=== PATIENT | male | born 1965 | race Caucasian/White ===

== ENCOUNTER 2019-02-22 22:54 | Inpatient (IN) | payer OTHER ==
[~2019-02-22] VITALS: Ht 170.2 cm; Wt 64.4 kg
[2019-02-22 22:54] VITALS: BP 116/78
--- NOTE | 2019-02-22 22:54 | NUR ---
PATIENT BIB ALS TO ER BED 8.
--- NOTE | 2019-02-22 22:54 | NUR ---
53 Y/O MALE BIB EMS FROM HOME AFTER X1 MIN SIEZURE. PT HAS HX OF SIEZUES. FAMILY REPORTS HE TAKES HIS MEDS. PT WAS PLACED ON 02 NC 4LPM FOR OXYGEN DROPPING TO 85% @ RA. UPON ED ARRIVAL. PT IS ALERT TO NAME, PLACE, AND EVENT. 100% OSAT WITH NC AT 4LPM. SEIZURE PRECAUTIONS IMPLEMENTED. VSS. ER MD AWARE. CONTINUE TO MONITOR.
--- NOTE | 2019-02-22 22:54 | NUR ---
PT [facility]. TAKEN TO BED 8
[2019-02-22] MEDS ORDERED: DIVA500T1 PO (23:02)
[2019-02-22] MEDS ORDERED: GABA100C PO (23:02)
[2019-02-22] MEDS ORDERED: ESCI20TA PO (23:02)
[2019-02-22] MEDS ORDERED: RISP0.5T3 PO (23:02)
[2019-02-22] MEDS ORDERED: levETIRAcetam 1,000 MG in NACL 0.9% 100 ML IV ONE (23:25)
--- NOTE | 2019-02-22 23:28 | NUR ---
PT HAD 10 SECOND SEIZURE. NO N/V. POSTICTAL AFTER SEIZURE. SUCTION NOT NEEDED BUT AT BEDSIDE. PT ON O2 AT 4LPM VIA NC. NO RESPIRATORY DISTRESS NOTED. ER MD AWARE. CONTINUE TO MONITOR.
[2019-02-22] MEDS ORDERED: levETIRAcetam 100 MG/ML VIAL IV ONE (23:40)
[2019-02-22 23:47] LABS: BASOPHILS % (AUTO) 0.5 % (0.0-2.0); EOSINOPHILS # (AUTO) 0.2 K/uL (0-0.4); EOSINOPHILS % (AUTO) 2.2 % (0.0-4.0); HEMATOCRIT 43.2 % (36-52); HEMOGLOBIN 14.3 g/dL (12.0-18.0); LYMPHOCYTES % (AUTO) 21.3 % (20.5-51.1); MEAN CORPUSCULAR HEMOGLOBIN 30 pg (27-31); MEAN CORPUSCULAR HGB CONC 33 g/dL (33-37); MEAN CORPUSCULAR VOLUME 90.7 fL (80-94); MONOCYTES # (AUTO) 0.8 K/uL (0.8-1.0); MONOCYTES % (AUTO) 8.1 % (1.7-9.3); NEUTROPHILS # (AUTO) 6.5 K/uL (1.8-7.7); NEUTROPHILS % (AUTO) 67.9 % (42.2-75.2); PLATELET COUNT (AUTO) 215 K/uL (140-450); RED BLOOD CELL COUNT(AUTO) 4.76 MIL/uL (4.20-6.10); RED CELL DISTRIBUTION WIDTH 19.4 % (11.6-13.7); WHITE BLOOD COUNT (AUTO) 9.5 K/uL (4.8-10.8)
--- NOTE | 2019-02-23 | NUR ---
PT IN BED RESTING. PT ALERT TO NAME, PLACE. SPEECH SLOW BUT FOLLOWS COMMANDS. BILAT EYES PERRLA. HAND ACCOUNTS PAYABLE ACCOUNTANT WEAK. VSS. CONTINUE TO MONITOR.
[2019-02-23 00:06] LABS: ANION GAP 16.1 (8-16); CARBON DIOXIDE 23.7 mmol/L (21-32); CREATININE 1.1 mg/dL (0.7-1.3); POTASSIUM 3.8 mmol/L (3.5-5.1)
[2019-02-23 00:11] LABS: ALBUMIN 3.1 g/dL (3.4-5.0); TOTAL BILIRUBIN 0.3 mg/dL (0.0-1.0)
[2019-02-23 00:31] LABS: APPEARANCE,URINE CLEAR (CLEAR); BILIRUBIN,URINE NEGATIVE (NEGATIVE); BLOOD, URINE NEGATIVE (NEGATIVE); COLOR,URINE YELLOW (YELLOW); LEUKOCYTE ESTERASE ,URINE NEGATIVE (NEGATIVE); NITRITE, URINE NEGATIVE (NEGATIVE); UGLUCOSE NEGATIVE (NEGATIVE)
--- NOTE | 2019-02-23 01:00 | NUR ---
PT IN BED RESTING WITH EYES OPEN. PT ALERT TO NAME, PLACE, TIME, AND EVENT. HAND GOLD LEAF LABORER BILAT STRONG. SPEECH STRONG AND CLEAR. PT STATES 0/10 PAIN AND NO RESPIRATORY DISTRESS. OXYGEN REDUCED TO 2LPM VIA NC. VSS. CONTINUE TO MONITOR.
--- NOTE | 2019-02-23 01:40 | NUR ---
RECEIVED BEDSIDE REPORT FROM [facility] NURSE. PATIENT IS AWAKE, ALERT, AND COOPERATIVE. ADMITTING DIAGNOSIS SEIZURE DISORDER. PATIENT IS AOX3. RESPIRATION EVEN UNLABORED ON 2L NC. NO DISTRESS NOTED. SKIN IS WARM AND DRY. IV PATENT AND INTACT. LUNG SOUNDS CLEAR ON AUSCULTATION. BOWEL SOUNDS PRESENT IN ALL 4 QUADRANTS. ABDOMEN SOFT AND NONTENDER. LAST BM 02/22. VITALS WERE TAKEN. MRSA SCREEN DONE. ORIENT PATIENT TO ROOM, STAFF, AND CALL LIGHT. ALL SAFETY MEASURES IN PLACE. SEIZURE PRECAUTION AND FALL RISK PRECAUTION IMPLEMENTED. PLAN OF CARE WAS DISCUSSED. BED IS AT LOW POSITION. CALL LIGHT WITHIN REACH AND VERBALIZES ITS USE. WILL CONTINUE TO MONITOR.
--- NOTE | 2019-02-23 01:40 | NUR ---
REPORT GIVEN AND CARE TRANSFERED TO REINALDO RN ROOM 121B. TRANSFERED VIA GURNEY WITH VSS.
[2019-02-23 01:58] VITALS: BP 122/76
[2019-02-23] MEDS ORDERED: HYDROcodone/APAP 5/325 MG 1 TAB TAB PO PRN (02:45)
--- NOTE | 2019-02-23 02:51 | NUR ---
PATIENT COMPLAINED OF 6/10 PENIS PAIN DUE TO STRAIGHT CATHETERIZATION FROM ER. PRN PAIN MED ADMINISTERED PER ORDER. WILL CONTINUE TO MONITOR.
[2019-02-23 04:00] VITALS: BP 92/62
--- NOTE | 2019-02-23 04:00 | NUR ---
VITALS WERE TAKEN. PATIENT CONDITION STABLE. NO DISTRESS NOTED. WILL CONTINUE TO MONITOR.
--- NOTE | 2019-02-23 05:00 | NUR ---
CHECKED PATIENT. PATIENT SLEEPING RESPIRATION EVEN UNLABORED ON 2L NC. NO DISTRESS NOTED. WILL CONTINUE TO MONITOR.
--- NOTE | 2019-02-23 07:25 | NUR ---
ENDORSED PATIENT TO DAY SHIFT NURSE. PATIENT CONDITION STABLE AT THIS TIME.
--- NOTE | 2019-02-23 07:26 | NUR ---
RECEIVED REPORT FROM CELL PHONE REPAIR TECHNICIAN NURSE REINALDO FOR CONTINUITY OF CARE. PT IN STABLE CONDITION. RESPIRATIONS EVEN AND UNLABORED. IV INTACT AND PATENT. SZ PRECAUTIONS IN PLACE. SAFETY MEASURES IN PLACE. CALL LIGHT AT BEDSIDE. BED IN LOW POSITION. BED ALARM ON. WILL CONTINUE TO MONITOR.
[2019-02-23 08:00] VITALS: BP 107/65
[2019-02-23] MEDS: DIVALPROEX 500 MG TABER PO SCH ×3 (09:32→17:59)
[2019-02-23] MEDS: GABAPENTIN 100 MG CAP PO SCH ×2 (09:33→20:38)
[2019-02-23] MEDS: ESCITALOPRAM 20 MG TAB PO SCH (09:33)
--- NOTE | 2019-02-23 09:34 | NUR ---
GAVE ORDERED DUE MEDICATIONS AT THIS TIME. PT TOLERATED WELL. WILL CONTINUE TO MONITOR. BED IN LOW POSITION. BED ALARM ON. CALL LIGHT AT BEDSIDE.
--- NOTE | 2019-02-23 09:42 | NUR ---
PATIENT HAS BEEN SCREENED AND CATEGORIZED LOW NUTRITION RISK. PATIENT WILL BE SEEN WITHIN 7 DAYS OF ADMISSION. 03/01/[address]
--- NOTE | 2019-02-23 10:40 | NUR ---
Follow up appointment scheduled on 03/06/[address] Vishnu Alcantara at 1210. Clinic number . Address: [address] [place] [address]. Appoinment slip given to pt with verbal understanding.
[2019-02-23] MEDS ORDERED: LORazepam 2 MG/ML VIAL IVP PRN (11:20)
--- NOTE | 2019-02-23 11:33 | NUR ---
PT LYING IN BED SLEEP AT THIS TIME. RESPIRATIONS EVEN AND UNLABORED. BED IN LOW POSITION. BED ALARM ON. SEIZURE PRECAUTIONS IN PLACE. WILL CONTINUE TO MONITOR.
[2019-02-23 12:00] VITALS: BP 114/62
--- NOTE | 2019-02-23 13:09 | NUR ---
PT LYING IN BED IN STABLE CONDITION. RESPIRATIONS EVEN AND UNLABORED. BED IN LOW POSITION. BED ALARM ON. SEIZURE PRECAUTIONS IN PLACE. WILL CONTINUE TO MONITOR.
--- NOTE | 2019-02-23 14:00 | NUR ---
FAMILY WANTED TO MAKE SURE PT WAS GETTING THE RIGHT MEDICATIONS THROUGHOUT THE DAY. PT VERBALIZED ALLOWING FAMILY TO KNOW WHAT MEDICATIONS HE WAS TAKING. ALL QUESTIONS ANSWERED AT THIS TIME. PT IN STABLE CONDITION.
[2019-02-23 16:00] VITALS: BP 107/70
--- NOTE | 2019-02-23 18:00 | NUR ---
PT EATING AT THIS TIME IN STABLE CONDITION. WILL CONTINUE TO MONITOR. RESPIRATIONS EVEN AND UNLABORED. CALL LIGHT AT BEDSIDE. BED IN LOW POSITION. BED ALARM ON.
--- NOTE | 2019-02-23 19:23 | NUR ---
WILL ENDORSE TO [facility] ETCH[facility] NURSE FOR CONTINUITY OF CARE. PT IN STABLE CONDITION
--- NOTE | 2019-02-23 19:30 | NUR ---
RECEIVED BEDSIDE REPORT FROM DAY SHIFT NURSE. PATIENT IS AWAKE, ALERT, AND COOPERATIVE. RESPIRATION EVEN UNLABORED ON 2L NC. NO DISTRESS NOTED. SKIN IS WARM AND DRY. IV PATENT AND INTACT. PLAN OF CARE WAS DISCUSSED. ALL SAFETY MEASURES IN PLACE. SEIZURE PRECAUTION MAINTAINED. BED IS AT LOW POSITION. CALL LIGHT WITHIN REACH. WILL CONTINUE TO MONITOR.
[2019-02-23 20:00] VITALS: BP 110/68
--- NOTE | 2019-02-23 20:00 | NUR ---
INITIAL ASSESSMENT DONE. VITALS WERE TAKEN. PATIENT SATING 96% ON ROOM AIR. NO DISTRESS NOTED. WILL CONTINUE TO MONITOR.
[2019-02-23] MEDS ORDERED: risperiDONE 1 MG TAB PO SCH ×2 (21:00)
--- NOTE | 2019-02-23 21:00 | NUR ---
ALL SCHEDULED MEDS WERE GIVEN. NO ASE NOTED. WILL CONTINUE TO MONITOR.
--- NOTE | 2019-02-23 22:39 | NUR ---
CHECKED PATIENT. PATIENT IN BED WATCHING TV. RESPIRATION EVEN UNLABORED ON ROOM AIR. NO DISTRESS NOTED. WILL CONTINUE TO MONITOR.
[2019-02-24] VITALS: BP 92/57
--- NOTE | 2019-02-24 | NUR ---
VITALS WERE TAKEN. PATIENT IN STABLE CONDITION. NO DISTRESS NOTED. WILL CONTINUE TO MONITOR.
--- NOTE | 2019-02-24 02:00 | NUR ---
CHECKED PATIENT. PATIENT SLEEPING RESPIRATION EVEN UNLABORED ON ROOM AIR. NO DISTRESS NOTED. WILL CONTINUE TO MONITOR.
--- NOTE | 2019-02-24 03:30 | NUR ---
PATIENT ACCIDENTALLY PULLED OUT HIS IV. NO ACTIVE BLEEDING NOTED. CANNULA INTACT. INSERTED A NEW ONE TO THE RIGHT HAND 24G. WILL CONTINUE TO MONITOR
[2019-02-24 04:00] VITALS: BP 113/77
--- NOTE | 2019-02-24 04:00 | NUR ---
VITALS WERE TAKEN. PATIENT IN STABLE CONDITION. NO DISTRESS NOTED. WILL CONTINUE TO MONITOR.
[2019-02-24 05:56] LABS: ALBUMIN 2.8 g/dL (3.4-5.0); ANION GAP 11.9 (8-16); CARBON DIOXIDE 28.1 mmol/L (21-32); TOTAL BILIRUBIN 0.3 mg/dL (0.0-1.0)
[2019-02-24 06:19] LABS: BASOPHILS % (AUTO) 0.3 % (0.0-2.0); EOSINOPHILS # (AUTO) 0.3 K/uL (0-0.4); EOSINOPHILS % (AUTO) 4.6 % (0.0-4.0); HEMATOCRIT 40.9 % (36-52); HEMOGLOBIN 13.8 g/dL (12.0-18.0); LYMPHOCYTES # (AUTO) 1.7 K/uL (2.0-11.5); LYMPHOCYTES % (AUTO) 29.9 % (20.5-51.1); MEAN CORPUSCULAR HEMOGLOBIN 30 pg (27-31); MEAN CORPUSCULAR HGB CONC 34 g/dL (33-37); MEAN CORPUSCULAR VOLUME 89.7 fL (80-94); MONOCYTES # (AUTO) 0.6 K/uL (0.8-1.0); MONOCYTES % (AUTO) 11.3 % (1.7-9.3); NEUTROPHILS # (AUTO) 3.1 K/uL (1.8-7.7); NEUTROPHILS % (AUTO) 53.9 % (42.2-75.2); PLATELET COUNT (AUTO) 216 K/uL (140-450); RED BLOOD CELL COUNT(AUTO) 4.56 MIL/uL (4.20-6.10); RED CELL DISTRIBUTION WIDTH 19.4 % (11.6-13.7); WHITE BLOOD COUNT (AUTO) 5.7 K/uL (4.8-10.8)
--- NOTE | 2019-02-24 07:04 | NUR ---
RECEIVED PATIENT ON ROOM AIR, PULSE OX SAT 96%. NO RESPIRATORY DISTRESS NOTED AT THIS TIME. WILL CONTINUE TO MONITOR.
--- NOTE | 2019-02-24 07:17 | NUR ---
ENDORSED PATIENT TO DAY SHIFT NURSE FOR CONTINUITY OF CARE. PATIENT IN STABLE CONDITION
--- NOTE | 2019-02-24 07:19 | NUR ---
RECEIVED BEDSIDE REPORT FROM [facility] NURSE FOR CONTINUITY OF CARE. PATIENT IS AWAKE AND RESTING ON BED AT THIS TIME. PATIENT IS AAOX4. DENIES PAIN, SOB AND DIZZINESS AT THIS TIME. RESPIRATION EVEN AND UNLABORED ON RA. NO SIGNS OF DISTRESS NOTED. IV ON R HAND #24G, CLEAN AND INTACT, SL. SKIN INTACT AND CLEAN. PATIENT IS CONTINENT AND ABLE TO AMBULATE WITH STANDBY ASSIST. DISCUSSED PLAN OF CARE WITH PATIENT AT BEDSIDE, PATIENT VERBALIZED UNDERSTANDING. SAFETY MEASURES IN PLACE. FALL RISK PROTOCOL ANS SEIZURE PROTOCOL INITIALED. BED IN LOW POSITION AND CALL LIGHT WITHIN REACH. INSTRUCTED PATIENT TO USE THE CALL LIGHT FOR ANY ASSISTANCE AND PATIENT VERBALIZED OK.
[2019-02-24 08:00] VITALS: BP 93/59
[2019-02-24] MEDS: ESCITALOPRAM 20 MG TAB PO SCH (08:10)
[2019-02-24] MEDS: GABAPENTIN 100 MG CAP PO SCH (08:10)
--- NOTE | 2019-02-24 08:34 | NUR ---
ADMINISTERED MEDS PER MD ORDER, PATIENT TOLERATED WELL. MEDICATIONS EDUCATION PROVIDED TO PATIENT AND PATIENT VERBALIZED UNDERSTANDING. PATIENT IS AWAKE AND TALKING ON HIS CELLPHONE AT THIS TIME. NO SIGNS OF DISTRESS NOTED. TELE MONITOR ATTACHED. SAFETY MEASURES IN PLACE. BED IN LOW POSITION AND CALL LIGHT WITHIN REACH. INSTRUCTED PATIENT TO USE THE CALL LIGHT FOR ANY ASSISTANCE AND PATIENT WAS AWARE.
[2019-02-24] MEDS ORDERED: DIVALPROEX 500 MG TABER PO SCH (09:00)
--- NOTE | 2019-02-24 09:30 | NUR ---
PATIENT IS AWAKE AND WATCHING TV ON BED AT THIS TIME. NO SIGNS OF DISTRESS NOTED. SAFETY MEASURES IN PLACE. TELE MONITOR ATTACHED. BED IN LOW POSITION AND CALL LIGHT WITHIN REACH. INSTRUCTED PATIENT TO USE THE CALL LIGHT FOR ANY ASSISTANCE AND PATIENT WAS AWARE.
--- NOTE | 2019-02-24 10:29 | NUR ---
DR BRIONES IS ASSESSING AND TALKING TO PATIENT AT BEDSIDE. NO SIGNS OF DISTRESS NOTED. SAFETY MEASURES IN PLACE.
[2019-02-24] MEDS ORDERED: ALUMINUM HYD/MAG/SIMETHICONE 30 ML UDC PO PRN (10:40)
--- NOTE | 2019-02-24 11:45 | NUR ---
PATIENT IS AWAKE AND RESTING ON BED. DENIES PAIN, DIZZINESS AND SOB. RESPIRATION EVEN AND UNLABORED ON RA. NO SIGNS OF DISTRESS NOTED. SAFETY MEASURES IN PLACE. TELE MONITOR ATTACHED. BED IN LOW POSITION AND CALL LIGHT WITHIN REACH. INSTRUCTED PATIENT TO USE THE CALL LIGHT FOR ANY ASSISTANCE AND PATIENT WAS AWARE. AWAITING FOR PATIENT' SISTER JULIETA TO ARRIVE TO HOSPITAL FOR DC.
[2019-02-24 12:00] VITALS: BP 97/65
--- NOTE | 2019-02-24 12:15 | NUR ---
PATIENT IS SITTING UP ON BED AND EATING LUNCH. NO SIGNS OF DISTRESS NOTED. SAFETY MEASURES IN PLACE. BED IN LOW POSITION AND CALL LIGHT WITHIN REACH. TELE MONITOR ATTACHED. AWAITING FOR SISTER JULIETA TO ARRIVE FOR DC.
--- NOTE | 2019-02-24 12:25 | NUR ---
PATIENT IS CHANGING INTO HIS OWN CLOTHES. NO SIGNS OF DISTRESS NOTED. SAFETY MEASURES IN PLACE. AWAITING FOR SISTER JULIETA TO ARRIVE FOR DC.
--- NOTE | 2019-02-24 12:40 | NUR ---
DISCHARGE INSTRUCTION PROVIDED TO PATIENT AT BEDSIDE. EDUCATED PATIENT ON MD FOLLOW UP, DISEASE MANAGEMENT, MEDICATIONS REGIMEN AND SIDE EFFECT, AND DIET REGIMEN. ANSWERED ALL PATIENT'S QUESTIONS AND PATIENT VERBALIZED UNDERSTANDING. D/C IV AND IV CANNULA INTACT, AND NO BLEEDING AT IV SITE. REMOVED ALL ARM BANDS. PATIENT CHANGED INTO HIS OWN CLOTHES. PATIENT CHECKED ALL THE CABINETS AND TOOK ALL HIS BELONGINGS. PATIENT IS GOING TO DISCHARGE AT THIS TIME IN STABLE CONDITION. PATIENT IS ACCOMPANIED BY HIS SISTER JULIETA.
== END 2019-02-24 12:40 | disposition home or self-care (01) | DRG 53 ==
LOC: MED 22:54 → MTU 02-23 00:57
PROVIDERS: ADMIT Internal Medicine Pulmonary Disease; ATTEND Internal Medicine Pulmonary Disease
DX: G40.209 Localization-related (focal) (partial) symptomatic epilepsy and epileptic syndromes with complex partial seizures, not intractable, without status epilepticus (principal); F20.9 Schizophrenia, unspecified; E11.9 Type 2 diabetes mellitus without complications
CPT/HCPCS: 36415; 80053; 81003; 85025; 87081; 95816; 96365; 99285; J1953

== ENCOUNTER 2020-03-25 12:12 | Emergency (ER) | payer OTHER ==
[~2020-03-25] VITALS: Ht 170.2 cm; Wt 81.6 kg
[~2020-03-25 12:12] MED LIST: DIVA500T1 PO; ESCI20TA PO; GABA100C PO; RISP0.5T3 PO
--- NOTE | 2020-03-25 12:12 | NUR ---
PATIENT BIBA TO BED 6.
--- NOTE | 2020-03-25 12:12 | NUR ---
DR. DICKSON AT BEDSIDE EVALUATING PATIENT.
[2020-03-25 12:15] VITALS: BP 117/83
--- NOTE | 2020-03-25 12:18 | NUR ---
54 y/o male deana als from [facility] s/p seizure. Per ems seizure was witnessed by mother while at [facility]. Pt states he felt dizzy and lowered himself to ground and then seizure began. Unknown how long seizure lasted. RR even and unlabored, pt positioned for comfort. Denies pain. Awake and alert. Presents with IV to lt hand. VSS. Placed on bedside monitor medhx: schiznophrenia, seizures
--- NOTE | 2020-03-25 12:21 | NUR ---
Seizure precautions in place
--- NOTE | 2020-03-25 12:26 | NUR ---
Lab at bedside for blood draw
--- NOTE | 2020-03-25 12:29 | NUR ---
Pt given urinal and urine collected at this time
[2020-03-25 12:41] LABS: BASOPHILS % (AUTO) 0.4 % (0.0-2.0); EOSINOPHILS % (AUTO) 1.1 % (0.0-4.0); HEMATOCRIT 39.4 % (36-52); HEMOGLOBIN 12.8 g/dL (12.0-18.0); LYMPHOCYTES # (AUTO) 1.1 K/uL (2.0-11.5); LYMPHOCYTES % (AUTO) 25.9 % (20.5-51.1); MEAN CORPUSCULAR HEMOGLOBIN 33 pg (27-31); MEAN CORPUSCULAR HGB CONC 33 g/dL (33-37); MEAN CORPUSCULAR VOLUME 102.3 fL (80-94); MONOCYTES # (AUTO) 0.3 K/uL (0.8-1.0); NEUTROPHILS # (AUTO) 2.8 K/uL (1.8-7.7); NEUTROPHILS % (AUTO) 65.6 % (42.2-75.2); PLATELET COUNT (AUTO) 156 K/uL (140-450); RED BLOOD CELL COUNT(AUTO) 3.85 MIL/uL (4.20-6.10); RED CELL DISTRIBUTION WIDTH 13.6 % (11.6-13.7); WHITE BLOOD COUNT (AUTO) 4.2 K/uL (4.8-10.8)
[2020-03-25 12:52] LABS: APPEARANCE,URINE CLEAR (CLEAR); BILIRUBIN,URINE NEGATIVE (NEGATIVE); BLOOD, URINE NEGATIVE (NEGATIVE); COLOR,URINE YELLOW (YELLOW); LEUKOCYTE ESTERASE ,URINE NEGATIVE (NEGATIVE); NITRITE, URINE NEGATIVE (NEGATIVE); UGLUCOSE 1+ (NEGATIVE)
[2020-03-25 13:09] LABS: ALBUMIN 3.3 g/dL (3.4-5.0); ANION GAP 15.2 (8-16); ASPARTATE AMINOTRANSFERASE 20 U/L (15-37); CARBON DIOXIDE 25.6 mmol/L (21-32); CHLORIDE 101 mmol/L (98-107); CREATININE 1.1 mg/dL (0.6-1.3); GFR ARICAN-AMERICAN 89 mL/min (>90); GLUCOSE 194 mg/dL (74-106); POTASSIUM 3.8 mmol/L (3.5-5.1); SODIUM SERUM 138 mmol/L (136-145); THYROID STIMULATING HORMONE 1.86 uIU/mL (0.34-3.74); TOTAL BILIRUBIN 0.4 mg/dL (0.0-1.0); UREA NITROGEN, BLOOD 16 mg/dL (7-18)
[2020-03-25 13:09] LABS: BARBITURATE, URINE NEGATIVE ng/ml (NEG <=200); BENZODIAZEPINE, URINE NEGATIVE ng/mL (NEG <=200); CANNABINOID, URINE NEGATIVE ng/mL (NEG <=50); COCAINE, URINE NEGATIVE ng/mL (NEG <=300); OPIATE, URINE NEGATIVE ng/mL (NEG <=2000); PHENCYCLIDINE SCREEN,URINE NEGATIVE ng/mL (NEG <=25)
--- NOTE | 2020-03-25 13:15 | NUR ---
Resting in bed positioned for comfort, no complaints at this time. Will continue to monitor.
[2020-03-25] MEDS ORDERED: DIVALPROEX 500 MG TABEC PO ONE (13:35)
--- NOTE | 2020-03-25 13:40 | NUR ---
IV removed, catheter intact and site benign. Applied folded 4x4 gauze and tape to stop bleeding.
--- NOTE | 2020-03-25 13:43 | NUR ---
Patient ambulated to restroom with steady gait.
[2020-03-25 13:51] VITALS: BP 115/80
--- NOTE | 2020-03-25 13:51 | NUR ---
Patient discharged with v/s stable. Written and verbal after care instructions given and explained. Patient verbalized understanding. Patient escorted to ED where sister was waiting for patient. Patient was ambulatory with steady gait. All questions addressed prior to discharge. Advised to follow up with PMD.
== END 2020-03-25 13:51 | disposition home or self-care (01) ==
LOC: MED 12:12
DX: R56.9 Unspecified convulsions (principal); G40.909 Epilepsy, unspecified, not intractable, without status epilepticus; F20.9 Schizophrenia, unspecified; Z98.890 Other specified postprocedural states; Z79.899 Other long term (current) drug therapy
CPT/HCPCS: 36415; 70450; 80053; 80305; 81001; 84439; 84443; 85025; 93005; 99285; G0482; 81003

== ENCOUNTER 2020-05-24 15:20 | Emergency (ER) | payer OTHER ==
[~2020-05-24] VITALS: Ht 170.2 cm; Wt 64.0 kg
[2020-05-24 15:30] VITALS: BP 117/70
--- NOTE | 2020-05-24 15:32 | NUR ---
54 YEAR OLD MALE BIBA FROM HOME AFTER WITNESSED SEIZURE 1-2MINS. PER EMS THE FAMILY PT DID NOT HAVE TRAUMA ON FALL. PER EMS PT NOT HAVE ANY SEIZURE WITH THEM ON TRANSPORT. PT AOX4, BREATHING EVEN AND UNLABORED, SKIN WARM AND DRY. BED IN LOWEST POSITION, LOCKED, BED RAIL UPX2 WITH SEIZURE PADS PRECAUTION. PT PLACED ON MONITOR, VS STABLE, ERMD MADE AWARE OF PT STATUS. PMH - SEIZURE, SCHIZOPHRENIA ALLERGIES - NKA
--- NOTE | 2020-05-24 15:42 | NUR ---
MOTHER STATES SHE IS UNSURE OF DOSAGE OF MEDICATIONS HE TAKES FOR SEIZURES DUE AT 4PM, PT ALSO STATES HE IS UNSURE OF DOSAGE. PHUCD MADE AWARE
--- NOTE | 2020-05-24 15:42 | NUR ---
CALLED MOTHER AT [phone], STATES HE WAS SLEEPING WHILE HAD SEIZURE AND DID NOT SEE ANY FALL. MOTHER STATES PT HAS BEEN TAKING MEDICATIONS OF DEPAKOTE AND RESPERDAL ON TIME.
[2020-05-24] MEDS ORDERED: NACL 0.9% 500 ML IV SCH (15:51)
[2020-05-24] MEDS ORDERED: DIVALPROEX 500 MG TABEC PO ONE (15:55)
[2020-05-24 16:13] LABS: BILIRUBIN,URINE NEGATIVE (NEGATIVE); BLOOD, URINE NEGATIVE (NEGATIVE); LEUKOCYTE ESTERASE ,URINE NEGATIVE (NEGATIVE); NITRITE, URINE NEGATIVE (NEGATIVE); UGLUCOSE NEGATIVE (NEGATIVE)
[2020-05-24 16:15] LABS: APPEARANCE,URINE CLEAR (CLEAR); COLOR,URINE YELLOW (YELLOW)
[2020-05-24 16:34] LABS: BASOPHILS % (AUTO) 0.5 % (0.0-2.0); EOSINOPHILS % (AUTO) 0.2 % (0.0-4.0); HEMATOCRIT 36.5 % (36-52); HEMOGLOBIN 12.2 g/dL (12.0-18.0); LYMPHOCYTES # (AUTO) 1.1 K/uL (2.0-11.5); LYMPHOCYTES % (AUTO) 16.7 % (20.5-51.1); MEAN CORPUSCULAR HEMOGLOBIN 33 pg (27-31); MEAN CORPUSCULAR HGB CONC 33 g/dL (33-37); MEAN CORPUSCULAR VOLUME 98.7 fL (80-94); MONOCYTES # (AUTO) 0.7 K/uL (0.8-1.0); NEUTROPHILS # (AUTO) 4.8 K/uL (1.8-7.7); NEUTROPHILS % (AUTO) 71.6 % (42.2-75.2); PLATELET COUNT (AUTO) 159 K/uL (140-450); RED CELL DISTRIBUTION WIDTH 14.3 % (11.6-13.7); WHITE BLOOD COUNT (AUTO) 6.7 K/uL (4.8-10.8)
[2020-05-24 16:47] LABS: ALBUMIN 3.2 g/dL (3.4-5.0); ANION GAP 8.1 (8-16); CARBON DIOXIDE 26.1 mmol/L (21-32); CREATININE 0.8 mg/dL (0.6-1.3); POTASSIUM 3.2 mmol/L (3.5-5.1); TOTAL BILIRUBIN 0.6 mg/dL (0.0-1.0)
--- NOTE | 2020-05-24 16:50 | NUR ---
PT URINATED ON FLOOR, STATES THAT HE HAD TO GO TO BATHROOM. ERMD MADE AWARE
[2020-05-24] MEDS ORDERED: POTASSIUM CHLORIDE 10 MEQ TABER PO ONE (17:05)
--- NOTE | 2020-05-24 17:09 | NUR ---
PT TAKEN TO CT VIA [facility]
[2020-05-24 17:20] LABS: PROTHROMBIN TIME 12.9 secs (10.8-13.4)
--- NOTE | 2020-05-24 17:25 | NUR ---
PT RETURNED FROM CT VIA [facility]
[2020-05-24 17:45] LABS: SALICYLATE 3.3 mg/dL (2.8-20.0)
[2020-05-24 17:46] LABS: BARBITURATE, URINE NEGATIVE ng/ml (NEG <=200); BENZODIAZEPINE, URINE NEGATIVE ng/mL (NEG <=200); CANNABINOID, URINE NEGATIVE ng/mL (NEG <=50); COCAINE, URINE NEGATIVE ng/mL (NEG <=300); OPIATE, URINE NEGATIVE ng/mL (NEG <=2000); PHENCYCLIDINE SCREEN,URINE NEGATIVE ng/mL (NEG <=25)
[2020-05-24 17:47] LABS: ACETAMINOPHEN < 0.5 ug/ml (10-30)
--- NOTE | 2020-05-24 17:51 | NUR ---
PT ALERT AND AWAKE, BREATHING EVEN AND UNLABORED. NO DISTRESS NOTED.
[2020-05-24 18:02] VITALS: BP 136/77
--- NOTE | 2020-05-24 18:02 | NUR ---
DPatient discharged with v/s stable. Written and verbal after care instructions given and explained. Patient verbalized understanding. Ambulatory with steady gait. All questions addressed prior to discharge. Advised to follow up with PMD.
--- NOTE | 2020-05-25 08:36 | NUR ---
CONFIRMED WITH RN -- NORMAL SALINE END TIME 4918 05/24/20
== END 2020-05-24 18:02 | disposition home or self-care (01) ==
LOC: MED 15:20
DX: R56.9 Unspecified convulsions (principal); F20.9 Schizophrenia, unspecified; Z79.899 Other long term (current) drug therapy
CPT/HCPCS: 36415; 70450; 71045; 72131; 80053; 80305; 81003; 83880; 84484; 85025; 85610; 85730; 87040; 93005; 96360; 99285; G0480; G0482; J7030

== ENCOUNTER 2020-10-28 06:35 | Day surgery (SDC) | payer OTHER, SELFPAY ==
[~2020-10-28] VITALS: Ht 167.6 cm; Wt 88.5 kg
[2020-10-28 07:53] LABS: BASOPHILS % (AUTO) 0.5 % (0.0-2.0); EOSINOPHILS # (AUTO) 0.1 K/uL (0-0.4); EOSINOPHILS % (AUTO) 1.6 % (0.0-4.0); HEMATOCRIT 40.5 % (36-52); HEMOGLOBIN 13.6 g/dL (12.0-18.0); MEAN CORPUSCULAR HEMOGLOBIN 34 pg (27-31); MEAN CORPUSCULAR HGB CONC 34 g/dL (33-37); MONOCYTES # (AUTO) 0.4 K/uL (0.8-1.0); MONOCYTES % (AUTO) 10.8 % (1.7-9.3); NEUTROPHILS # (AUTO) 2.4 K/uL (1.8-7.7); NEUTROPHILS % (AUTO) 62.1 % (42.2-75.2); PLATELET COUNT (AUTO) 129 K/uL (140-450); RED BLOOD CELL COUNT(AUTO) 4.05 MIL/uL (4.20-6.10); RED CELL DISTRIBUTION WIDTH 14.3 % (11.6-13.7); WHITE BLOOD COUNT (AUTO) 3.9 K/uL (4.8-10.8)
[2020-10-28 08:09] LABS: ALBUMIN 3.5 g/dL (3.4-5.0); ANION GAP 12.2 (8-16); CARBON DIOXIDE 27.3 mmol/L (21-32); CREATININE 0.8 mg/dL (0.6-1.3); POTASSIUM 3.5 mmol/L (3.5-5.1); TOTAL BILIRUBIN 0.8 mg/dL (0.0-1.0)
[2020-10-28] MEDS ORDERED: LACTATED RINGERS 1,000 ML IV SCH (08:20)
[2020-10-28] MEDS ORDERED: fentaNYL citrate 0.05 MG/ML VIAL IVP PRN (08:20)
[2020-10-28] MEDS ORDERED: MIDAZOLAM 2 MG/2 ML VIAL ONE (08:50)
[2020-10-28] MEDS ORDERED: LIDOCAINE 2% 100 MG/5 ML SYR IVP ONE (08:50)
[2020-10-28] MEDS ORDERED: PROPOFOL 200 MG/20 ML VIAL IV ONE (08:50)
[2020-10-28] MEDS ORDERED: fentaNYL citrate 0.05 MG/ML VIAL ONE (08:50)
[2020-10-28] MEDS ORDERED: LIDOCAINE 2% 100 MG/5 ML UJET TP ONE (08:56)
== END 2020-10-28 10:25 | disposition home or self-care (01) ==
LOC: MDS 06:35 → MFCC 06:49 → MDS 10:25
PROVIDERS: ATTEND Internal Medicine Gastroenterology
DX: Z09 Encounter for follow-up examination after completed treatment for conditions other than malignant neoplasm (principal); K63.5 Polyp of colon; G40.909 Epilepsy, unspecified, not intractable, without status epilepticus; Z86.010 Personal history of colon polyps; D69.6 Thrombocytopenia, unspecified; F20.9 Schizophrenia, unspecified; D72.819 Decreased white blood cell count, unspecified; Z79.899 Other long term (current) drug therapy; Z20.828 Contact with and (suspected) exposure to other viral communicable diseases
CPT/HCPCS: 36415; 45385; 71045; 80053; 85025; J2001; J2250; J2704; J3010; J7030; U0003

== ENCOUNTER 2023-11-01 09:27 | Day surgery (SDC) | payer OTHER ==
[~2023-11-01] VITALS: Ht 170.2 cm; Wt 72.1 kg
[~2023-11-01 09:27] MED LIST changes: -RISP0.5T3 PO
[2023-11-01 10:18] LABS: BASOPHILS % (AUTO) 0.4 % (0.0-2.0); EOSINOPHILS % (AUTO) 0.7 % (0.0-4.0); HEMATOCRIT 41.3 % (36-52); HEMOGLOBIN 14.4 g/dL (12.0-18.0); LYMPHOCYTES # (AUTO) 1.7 K/uL (2.0-11.5); LYMPHOCYTES % (AUTO) 31.9 % (20.5-51.1); MEAN CORPUSCULAR HEMOGLOBIN 32 pg (27-31); MEAN CORPUSCULAR HGB CONC 35 g/dL (33-37); MEAN CORPUSCULAR VOLUME 92.9 fL (80-94); MONOCYTES # (AUTO) 0.4 K/uL (0.8-1.0); MONOCYTES % (AUTO) 7.1 % (1.7-9.3); NEUTROPHILS # (AUTO) 3.1 K/uL (1.8-7.7); NEUTROPHILS % (AUTO) 59.9 % (42.2-75.2); PLATELET COUNT (AUTO) 242 K/uL (140-450); RED BLOOD CELL COUNT(AUTO) 4.44 MIL/uL (4.20-6.10); RED CELL DISTRIBUTION WIDTH 13.9 % (11.6-13.7); WHITE BLOOD COUNT (AUTO) 5.2 K/uL (4.8-10.8)
[2023-11-01 10:31] LABS: ALBUMIN 3.4 g/dL (3.4-5.0); ANION GAP 10.5 (8-16); CALCIUM 9.4 mg/dL (8.5-10.1); CARBON DIOXIDE 28.9 mmol/L (21-32); POTASSIUM 4.4 mmol/L (3.5-5.1); TOTAL BILIRUBIN 0.5 mg/dL (0.0-1.0); TOTAL PROTEIN, SERUM 8.6 g/dL (6.4-8.2)
[2023-11-01] MEDS ORDERED: PROPOFOL 200 MG/20 ML VIAL IV ONE (11:22)
[2023-11-01] MEDS: LIDOCAINE 2% 100 MG/5 ML UJET TP ONE (11:28)
== END 2023-11-01 12:58 | disposition home or self-care (01) ==
LOC: MDS 09:27 → MMU 09:33 → MDS 12:58
PROVIDERS: ATTEND Internal Medicine Gastroenterology
DX: Z12.11 Encounter for screening for malignant neoplasm of colon (principal); Z86.010 Personal history of colon polyps; K63.5 Polyp of colon; K51.90 Ulcerative colitis, unspecified, without complications; E11.9 Type 2 diabetes mellitus without complications; F32.A Depression, unspecified; F41.9 Anxiety disorder, unspecified; Z79.899 Other long term (current) drug therapy; Z98.890 Other specified postprocedural states
CPT/HCPCS: 36415; 45378; 71045; 80053; 85025; 93005; J2704; J7030; Q0092